=== PATIENT | female | born 1985 | race Caucasian/White ===

== ENCOUNTER → 2020-12-21 | Outpatient (CLI) | payer OTHER ==
--- NOTE | 2020-12-21 15:04 | KCIC ---
EXAMINATION: MRI LEFT ANKLE WITHOUT IV CONTRAST CLINICAL HISTORY: LEFT LATERAL ANKLE PAIN DECREASED ROM. Left lateral ankle pain for yrs with prior s urgery with cadaveric graft in 2019 TECHNIQUE: Multiplanar multisequential images obtained through the ankle without intravenous contrast . COMPARISON: None FINDINGS: Anterior Talofibular Ligament: Diminutive and poorly visualized, compatible with remote/chronic injur y. Posterior Talofibular Ligament: Within normal limits. Anterior-Inferior Tibiofibular Ligament: Within normal limits. Posterior Tibiofibular Ligament: Within normal limits. Calcaneofibular Ligament: Within normal limits. Deltoid Ligament: Within normal limits. Spring Ligament: Within normal limits. Posterior Tibial Tendon: Within normal limits. Flexor Digitorum Longus Tendon: Within normal limits. Flexor Hallucis Longus Tendon: Within normal limits. Peroneal Tendons: Longitudinal split tearing of the peroneus brevis tendon distal to the syndesmosis. Peroneus longus tendinosis in the hindfoot. Extensor Tendons: Within normal limits. Achilles Tendon: Within normal limits. Bone Marrow: No acute fracture or suspicious marrow replacing process. Talar Dome: Tiny focus of subchondral marrow edema in the anteromedial talar dome, suspicious for a t iny osteochondral lesion. Plantar Fascia: Within normal limits. Tarsal Tunnel/Sinus Tarsi: Within normal limits. Joint Fluid: No joint effusion or synovitis. IMPRESSION: Longitudinal split tearing in the peroneus brevis tendon and peroneus longus tendinosis. Findings suspicious for a tiny osteochondral lesion in the anteromedial talar dome. Electronically signed by: Arturo Carlson DO (12/21/2020 3:01 PM) [id number]
== END ==
LOC: KCIC MRI 12:46
PROVIDERS: ATTEND Nurse Practitioner Family
DX: S86.312A Strain of muscle(s) and tendon(s) of peroneal muscle group at lower leg level, left leg, initial encounter (principal); X58.XXXA Exposure to other specified factors, initial encounter; Y93.89 Activity, other specified; Y92.89 Other specified places as the place of occurrence of the external cause; Y99.8 Other external cause status
CPT/HCPCS: 73721